=== PATIENT | female | born 1960 ===

== ENCOUNTER 2017-01-06 10:36 | Emergency (ER) | payer OTHER ==
[2017-01-06 10:57] VITALS: RESP 18; TEMP 98.1; O2SAT 98
[2017-01-06 11:50] VITALS: BP 134/72; PULSE 78
--- NOTE | 2017-01-06 15:26 | C.PDOC ---
History Of Present Illness The patient, a 56 y/o female, presents to the ED for evaluation of decreased vision in her left eye which began around 1.5 months ago. Patient states she was evaluated by an customer solutions specialist, who informed patient that she has cataracts and requires surgery. Patient denies any new complaints as well as fever, chills , headache, dizziness, and recent trauma/injury. Chief Complaint (Nursing): Headache History Per: Patient History/Exam Limitations: no limitations Onset/Duration Of Symptoms: Other (around 1.5 months ) Current Symptoms Are (Timing): Still Present Additional History Per: Patient Past Medical History Reviewed: Historical Data, Nursing Documentation, Vital Signs Vital Signs: Last Vital Signs Temp 98.1 F 01/06/17 10:55 Pulse 78 01/06/17 11:48 Resp 18 01/06/17 11:48 BP 134/72 01/06/17 11:48 Pulse Ox 98 01/06/17 15:41 - Medical History PMH: HTN Denies: Chronic Kidney Disease Surgical History: Hernia Repair Family History: States: Unknown Family Hx - Social History Hx Alcohol Use: No Hx Substance Use: No - Immunization History Hx Tetanus Toxoid Vaccination: No Hx Influenza Vaccination: No Hx Pneumococcal Vaccination: No Review Of Systems Except As Marked, All Systems Reviewed And Found Negative. Constitutional: Negative for: Fever, Chills Eyes: Positive for: Vision Change (decreased vision change in left eye ) Neurological: Negative for: Headache Physical Exam - Physical Exam Appears: Non-toxic, No Acute Distress Skin: Normal Color, Warm, Dry Head: Atraumatic, Normacephalic Eye(s): bilateral: Normal Inspection Oral Mucosa: Moist Neck: Normal ROM, Supple Chest: Symmetrical, No Deformity, No Tenderness Cardiovascular: Rhythm Regular, No Murmur Respiratory: Normal Breath Sounds, No Rales, No Rhonchi, No Wheezing Back: Normal Inspection, No Vertebral Tenderness, No Paraspinal Tenderness Extremity: Normal ROM, Capillary Refill (less than 2 seconds ) Neurological/Psych: Oriented x3, Normal Speech, Normal Cognition Gait: Steady ED Course And Treatment O2 Sat by Pulse Oximetry: 98 (on RA) Pulse Ox Interpretation: Normal Disposition - Disposition Referrals: Jonathan Marie MD [Staff Provider] - Disposition: HOME/ ROUTINE Disposition Time: 11:35 Condition: GOOD Additional Instructions: Thank you for letting us take care of you today. Your provider was Dr. Carrera. You were treated for cataracts. The emergency medical care you received today was directed at your acute symptoms. If you were prescribed any medication, please fill it and take as directed. It may take several days for your symptoms to resolve. Return to the Emergency Department if your symptoms worsen, do not improve, or if you have any other problems. Please contact your doctor or call one of the physicians/clinics you have been referred to that are listed on the Patient Visit Information form that is included in your discharge packet. Bring any paperwork you were given at discharge with you along with any medications you are taking to your follow up visit. Our treatment cannot replace ongoing medical care by a primary care provider (PCP) outside of the emergency department. Thank you for allowing the [facility] team to be part of your care today. Follow up with your eye doctor of the doctor referred to you here for re- evaluation this week. Instructions: Cataracts (ED) Forms: Gen Discharge Inst Croatian Print Language: ETHIOPIAN - Clinical Impression Clinical Impression: Sinusitis - Scribe Statement The provider has reviewed the documentation as recorded by the Scribe (Adriana Zavaleta) Provider Attestation: All medical record entries made by the Scribe were at my direction and personally dictated by me. I have reviewed the chart and agree that the record accurately reflects my personal performance of the history, physical exam, medical decision making, and the department course for this patient. I have also personally directed, reviewed, and agree with the discharge instructions and disposition.
== END 2017-01-06 11:50 | disposition home or self-care (01) ==
LOC: C.ER 10:36
DX: H26.9 Unspecified cataract (principal)

== ENCOUNTER 2017-01-22 11:15 | Emergency (ER) | payer OTHER ==
[2017-01-22 11:22] VITALS: RESP 18; O2SAT 99
--- NOTE | 2017-01-22 12:03 | C.PDOC ---
History Of Present Illness A 56 year old female presents to the ER c/o blurred vision and left eye discomfort for awhile. Patient notes occasional headaches and decreased vision. Patient was seen in the ER previously and went to see a opthomologist. Patient returned to the ER today, stating the doctor would not see her without referral. Patient is requesting a referral to see a optho. Patient denies headaches, fever, neck pain, numbness, trauma, or any other complaints. Time Seen by Provider: 01/22/17 11:41 Chief Complaint (Nursing): Eye Problem History Per: Patient History/Exam Limitations: no limitations Onset/Duration Of Symptoms: Days Current Symptoms Are (Timing): Still Present Injury To Eye?: No Severity: Mild Associated Symptoms: Decreased Vision Recent travel outside of the [place]: No Additional History Per: Patient Past Medical History Reviewed: Historical Data, Nursing Documentation, Vital Signs Vital Signs: Last Vital Signs Temp 97.2 F L 01/22/17 12:27 Pulse 80 01/22/17 12:27 Resp 18 01/22/17 12:27 BP 130/80 01/22/17 12:27 Pulse Ox 99 01/22/17 12:49 - Medical History PMH: HTN Surgical History: Hernia Repair Family History: States: Unknown Family Hx - Social History Hx Alcohol Use: No Hx Substance Use: No - Immunization History Hx Tetanus Toxoid Vaccination: No Hx Influenza Vaccination: No Hx Pneumococcal Vaccination: No Review Of Systems Constitutional: Negative for: Fever, Chills, Other (Trauma) Eyes: Positive for: Pain (Left eye discomfort), Vision Change (Decreased vision left eye) Cardiovascular: Negative for: Chest Pain, Palpitations Respiratory: Negative for: Cough, Shortness of Breath Musculoskeletal: Negative for: Neck Pain Skin: Negative for: Bruising Neurological: Negative for: Weakness, Numbness, Headache, Dizziness Physical Exam - Physical Exam Appears: Non-toxic, No Acute Distress Skin: Warm, Dry, No Diaphoretic, No Pale Head: Atraumatic, Normacephalic Eye(s): bilateral: Normal Inspection, PERRL, EOMI, Other (No eyelid inflammation , no discharge, no redness or abnormal pupil) Nose: Normal Neck: Normal ROM, Supple Cardiovascular: Rhythm Regular, No Murmur Respiratory: Normal Breath Sounds, No Rales, No Rhonchi, No Wheezing Extremity: Bilateral: Atraumatic, Normal Color And Temperature, Normal ROM Neurological/Psych: Oriented x3, Normal Speech, No Cerebellar Signs, No Other ( No focal deficit) ED Course And Treatment O2 Sat by Pulse Oximetry: 99 (Room air) Pulse Ox Interpretation: Normal Medical Decision Making Medical Decision Making: Prior record reviewed patient was seen in ED 01/06/17 for left eye vision loss and diagnosed with cataracts, instructed to follow up with optho. Call [facility] and spoke with law secretary Mireille who states patient needs referral from clinic Dr Peters to be seen by optho with [facility]. Call the clinic and Spoke with Dr Peters, who states she is not familiar with patient and the patient has to first make an appointment to be seen in clinic, then can get referral. Explain all this to patient and must follow up. Patient guided to clinic by CP to schedule appointment Disposition - Disposition Referrals: Cher Peters MD [Staff Provider] - Jonathan Marie MD [Staff Provider] - Disposition: HOME/ ROUTINE Disposition Time: 12:05 Condition: STABLE Additional Instructions: You need to be seen in [facility] clinic by Dr Peters to get referral for eye doctor Please make appointment in the clinic You may call [facility] for any assistance [phone]. Usted necesita ser visto en la clnica de cuidado de la murtaza por el Dr. Peters para conseguir la remisin para el oftalmlogo Por favor, ceci sudha mary en la clnica Usted puede llamar al servicio de conserjera para cualquier ayuda [phone]. Instructions: Cataracts (ED) Print Language: URDU - POA Present On Arrival: None - Clinical Impression Clinical Impression: Cataract, Vision loss, left eye - Scribe Statement The provider has reviewed the documentation as recorded by the Scribe Renny kaye All medical record entries made by the Scribe were at my direction and personally dictated by me. I have reviewed the chart and agree that the record accurately reflects my personal performance of the history, physical exam, medical decision making, and the department course for this patient. I have also personally directed, reviewed, and agree with the discharge instructions and disposition.
[2017-01-22 12:28] VITALS: BP 130/80; PULSE 80; TEMP 97.2
== END 2017-01-22 12:15 | disposition home or self-care (01) ==
LOC: C.ER 11:15
DX: H26.9 Unspecified cataract (principal); H54.62 Unqualified visual loss, left eye, normal vision right eye

== ENCOUNTER 2018-10-09 09:07 | Outpatient (CLI) | payer SELFPAY | END 2018-10-09 09:08 | disposition home or self-care (01) | LOC: C.CARD 09:07 ==

== ENCOUNTER 2018-10-26 22:17 | Emergency (ER) | payer SELFPAY ==
[2018-10-26 22:18] VITALS: BMI 25.2
[2018-10-26 22:31] VITALS: RESP 20; O2SAT 98
--- NOTE | 2018-10-26 22:42 | C.PDOC ---
History Of Present Illness The patient presents to the ED for evaluation of fever, non-productive cough and congestion which began one week ago. Patient reports some chest wall pain with coughing. She denies shortness of breath, nausea, vomiting. Time Seen by Provider: 10/26/18 22:41 Chief Complaint (Nursing): Cough, Cold, Congestion History Per: Patient History/Exam Limitations: no limitations Onset/Duration Of Symptoms: Other (one week ) Current Symptoms Are (Timing): Still Present Severity: Mild Pain Scale Rating Of: 1 Recent travel outside of the [place]: No Additional History Per: Patient Past Medical History Reviewed: Historical Data, Nursing Documentation, Vital Signs Vital Signs: Last Vital Signs Temp 98.2 F 10/26/18 22:25 Pulse 100 H 10/26/18 22:25 Resp 20 10/26/18 22:25 BP 133/84 10/26/18 22:25 Pulse Ox 98 10/26/18 22:25 - Medical History PMH: HTN, Hypercholesterolemia Denies: Chronic Kidney Disease Surgical History: Endoscopy, Hernia Repair Family History: States: Unknown Family Hx - Social History Hx Alcohol Use: No Hx Substance Use: No - Immunization History Hx Tetanus Toxoid Vaccination: No Hx Influenza Vaccination: No Hx Pneumococcal Vaccination: No Review Of Systems Constitutional: Positive for: Fever, Chills ENT: Positive for: Nose Discharge. Negative for: Ear Pain, Throat Pain Cardiovascular: Positive for: Chest Pain (associated with coughing ). Negative for: Palpitations Respiratory: Positive for: Cough. Negative for: Shortness of Breath, Sputum Gastrointestinal: Negative for: Nausea, Vomiting Musculoskeletal: Negative for: Neck Pain, Shoulder Pain, Arm Pain Skin: Negative for: Rash, Lesions, Jaundice, Bruising Neurological: Negative for: Weakness, Numbness Physical Exam - Physical Exam Appears: Non-toxic, No Acute Distress Skin: Warm, Dry Head: Normacephalic Eye(s): bilateral: Normal Inspection Ear(s): Bilateral: Normal Nose: No Discharge Oral Mucosa: Moist Throat: No Erythema, No Exudate, Other (oropharynx is clear ) Chest: Symmetrical, No Deformity, No Tenderness Cardiovascular: Rhythm Regular, No Murmur Respiratory: No Rales, Rhonchi (scattered ), No Wheezing Extremity: Normal ROM, Capillary Refill (less than 2 seconds ) Neurological/Psych: Oriented x3 ED Course And Treatment - Laboratory Results Result Diagrams: 10/26/18 23:34 10/26/18 23:34 ECG: Interpreted By Me, Viewed By Me ECG Rhythm: Sinus Rhythm (93), Nonspecific Changes O2 Sat by Pulse Oximetry: 98 (on RA) Pulse Ox Interpretation: Normal - Radiology CXR: Interpreted by Me, Viewed By Me CXR Interpretation: No: Infiltrates, Fracture, Pnemothorax Progress Note: Bloodwork, CXR, Flu swab ordered. Albuterol INH, Toradol IVP and IV Fluids given. Reevaluation Time: 01:31 Reassessment Condition: Improved Medical Decision Making Medical Decision Making: Upon provider reevaluation patient is feeling better, is medically stable, and requires no further treatment in the ED at this time. Patient will be discharged home with Rx for albuterol and zithromax . Counseling was provided and all questions were answered regarding diagnosis and need for follow up with the referred clinic. There is agreement to discharge plan. Return if symptoms persist or worsen. Disposition Counseled Patient/Family Regarding: Studies Performed, Diagnosis, Need For Followup, Rx Given - Disposition Referrals: Cher Peters MD [Staff Provider] - Disposition: HOME/ ROUTINE Disposition Time: 22:41 Condition: FAIR Additional Instructions: Please return if symptoms recur Prescriptions: Albuterol HFA [Ventolin HFA 90 mcg/actuation (8 g)] 2 puff IH [id number] #1 puff Azithromycin [Zithromax Tri-Fly] 500 mg PO DAILY #3 tablet Instructions: Upper Respiratory Infection (ED) Forms: [facility] (Upper Sorbian) Print Language: KENYAN - Clinical Impression Clinical Impression: URI (upper respiratory infection) - Scribe Statement The provider has reviewed the documentation as recorded by the Scribe (Adriana Zavaleta) Provider Attestation: All medical record entries made by the Scribe were at my direction and personally dictated by me. I have reviewed the chart and agree that the record accurately reflects my personal performance of the history, physical exam, medical decision making, and the department course for this patient. I have also personally directed, reviewed, and agree with the discharge instructions and disposition.
[2018-10-26] MEDS ORDERED: Sodium Chloride 0.9% 1,000 ML IV ONE (23:00)
[2018-10-26] MEDS ORDERED: Albuterol-Ipratrop 3 mg / 0.5 (3 ml) UD IH SCH (23:00)
[2018-10-26] MEDS ORDERED: Albuterol-Ipratrop 3 mg / 0.5 (3 ml) UD ONE (23:18)
[2018-10-26 23:37] LABS: BASO # 0.1 K/uL (0.0-0.2); BASO % 0.9 % (0.0-2.0); EOS # 0.2 K/uL (0.0-0.7); EOS % 1.8 % (0.0-4.0); HEMOGLOBIN 11.9 g/dL (11.0-16.0); LYMPH # 4.3 K/uL (1.0-4.3); LYMPH % 44.1 % (20.0-40.0); MEAN CELL VOLUME 86.1 fL (81.0-99.0); MEAN CORPUSCULAR HEMOGLOBIN 29.5 pg (27.0-31.0); MEAN CORPUSCULAR HGB CONC 34.2 g/dL (33.0-37.0); MEAN PLATELET VOLUME 8.7 fL (7.2-11.7); MONO # 0.9 K/uL (0.0-0.8); MONO % 9.1 % (0.0-10.0); NEUT # 4.3 K/uL (1.8-7.0); NEUT % 44.1 % (50.0-75.0); RBC 4.02 Mil/uL (3.80-5.20); RED CELL DISTRIBUTION WIDTH 13.1 % (11.5-14.5); WHITE BLOOD COUNT 9.7 K/uL (4.8-10.8)
[2018-10-26 23:51] LABS: ALB/GLOB RATIO 1.3 (1.0-2.1); ALBUMIN 4.5 g/dL (3.5-5.0); ALT/SGPT 19 U/L (9-52); AST/SGOT 23 U/L (14-36); BLOOD UREA NITROGEN 14 mg/dL (7-17); CALCIUM 8.8 mg/dl (8.6-10.4); GFR NON-AFRICAN AMERICAN > 60
[2018-10-27 01:42] VITALS: BP 130/72; PULSE 81; TEMP 98.8
--- NOTE | 2018-10-27 09:30 | RAD ---
Date of service: 10/26/2018 HISTORY: SOB COMPARISON: No prior. TECHNIQUE: Chest PA and lateral FINDINGS: LUNGS: No active pulmonary disease. PLEURA: No significant pleural effusion identified. No pneumothorax apparent. CARDIOVASCULAR: No aortic atherosclerotic calcification present. Normal cardiac size. No pulmonary vascular congestion. OSSEOUS STRUCTURES: No significant abnormalities. VISUALIZED UPPER ABDOMEN: Normal. OTHER FINDINGS: None. IMPRESSION: No active disease.
--- NOTE | 2018-10-28 16:07 | CARD ---
APPROVED REPORT Date of service: 10/26/2018 EKG Measurement Heart [id number] <Conclusion> Normal sinus rhythm Cannot rule out Anterior infarct, age undetermined Abnormal ECG
== END 2018-10-27 01:42 | disposition home or self-care (01) ==
LOC: C.ER 22:17
DX: J06.9 Acute upper respiratory infection, unspecified (principal); I10 Essential (primary) hypertension; E78.00 Pure hypercholesterolemia, unspecified
CPT/HCPCS: 71046; 80053; 81025; 85025; 87804; 93005; 96374; 99284; J1885; J7030

== ENCOUNTER 2018-11-02 12:07 | Outpatient (CLI) | payer SELFPAY | END 2018-11-02 12:08 | disposition home or self-care (01) | LOC: C.CTH 12:07 | DX: D49.0 Neoplasm of unspecified behavior of digestive system (principal); K76.0 Fatty (change of) liver, not elsewhere classified ==

== ENCOUNTER 2018-12-07 06:59 | Day surgery (SDC) | payer SELFPAY ==
[2018-12-06 09:52] VITALS: BMI 22.6
[2018-12-07 07:24] VITALS: PULSE 80; RESP 20; TEMP 97.5; O2SAT 99
--- NOTE | 2018-12-07 07:33 | CP.SDSHP ---
Same Day Surgery H & P - History Proposed Procedure: EGD. Colonoscopy Pre-Op Diagnosis: heartburn refractory to Rx. Screening for colon cancer - Previous Medical/Surgical History Cardiac: Hypertension, Other (hyperlipidemia, NAFLD) Endocrine/Metabolic: Diabetes, Obesity - Allergies Allergies: Allergies No Known Allergies Allergy (Verified 12/07/18 07:22) - Physical Exam Vital Signs: Vital Signs 12/07/18 07:10 Temperature 97.5 F L Pulse Rate 80 Respiratory 20 Rate Blood Pressure 140/85 O2 Sat by Pulse 99 Oximetry Mental Status: Alert & Oriented x3 Neuro: WNL Heart: WNL Lungs: WNL GI: WNL - Impression Impression: heartburn. Screening for colon cancer Pt. Evaluated Today:Candidate for Anesthesia & Procedure: Yes - Date & Time Date: 12/07/18 Time: 07:33 Short Stay Discharge - Short Stay Discharge Admitting Diagnosis/Reason for Visit: HEARTBURN / SCREENING Disposition: HOME/ ROUTINE
[2018-12-07] MEDS ORDERED: Propofol 10 mg/ml Inj (20 ML) ONE (08:17)
[2018-12-07] MEDS ORDERED: Lactated Ringer's 1,000 ML IV ONE (08:30)
[2018-12-07 09:46] VITALS: BP 123/68
== END 2018-12-07 10:09 | disposition home or self-care (01) ==
LOC: C.ENDO 06:59 → MERGE 06:59 → C.ENDO 10:09
PROVIDERS: ATTEND Internal Medicine Gastroenterology
DX: K29.50 Unspecified chronic gastritis without bleeding (principal); K21.0 Gastro-esophageal reflux disease with esophagitis; B96.81 Helicobacter pylori [H. pylori] as the cause of diseases classified elsewhere; K62.89 Other specified diseases of anus and rectum; K64.8 Other hemorrhoids; K57.90 Diverticulosis of intestine, part unspecified, without perforation or abscess without bleeding
CPT/HCPCS: 43239; 45380; 82948; 88305; 88312; 88342; J2001; J2704; J7120

== ENCOUNTER 2019-02-01 12:03 | Outpatient (CLI) | payer SELFPAY | END 2019-02-01 12:04 | disposition home or self-care (01) | LOC: C.MAMMO 12:03 | DX: Z12.31 Encounter for screening mammogram for malignant neoplasm of breast (principal) ==